=== PATIENT | male | born 1950 | race Caucasian/White ===

== ENCOUNTER 2024-01-23 15:21 | Outpatient (CLI) | payer MEDICARE, OTHER | END 2024-01-23 23:59 | disposition home or self-care (01) | LOC: MRI02 15:21 | PROVIDERS: ATTEND Podiatrist Foot & Ankle Surgery | DX: S86.019A Strain of unspecified Achilles tendon, initial encounter (principal); M25.472 Effusion, left ankle; M21.6X2 Other acquired deformities of left foot; M65.872 Other synovitis and tenosynovitis, left ankle and foot; X58.XXXA Exposure to other specified factors, initial encounter; Y93.89 Activity, other specified; Y92.89 Other specified places as the place of occurrence of the external cause; Y99.8 Other external cause status | CPT/HCPCS: 73721 ==